=== PATIENT | male | born 1945 | race Caucasian/White ===

== ENCOUNTER → 2016-05-08 | Outpatient (CLI) | payer OTHER ==
[2016-05-08 09:37] LABS: MEAN CORPUSCULAR HEMOGLOBIN 29.3 pg (27.0-33.0); MEAN CORPUSCULAR HGB CONC 33.8 g/dl (32.0-36.5); MEAN CORPUSCULAR VOLUME 86.5 fl (80.0-96.0); RED CELL DISTRIBUTION WIDTH 13.2 % (11.5-14.5); WHITE BLOOD COUNT 7.4 K/mm3 (4.0-10.0)
[2016-05-08 10:18] LABS: ALBUMIN 3.8 GM/DL (3.2-5.2); ALBUMIN/GLOBULIN RATIO 1.09 (1.00-1.93); ALKALINE PHOSPHATASE 87 U/L (45-117); ALT/SGPT 31 U/L (12-78); ANION GAP 9 MEQ/L (8-16); AST/SGOT 34 U/L (15-37); BILIRUBIN,TOTAL 0.6 MG/DL (0.2-1.0); BLOOD UREA NITROGEN 20 MG/DL (7-18); CALCIUM LEVEL 8.8 MG/DL (8.8-10.2); CARBON DIOXIDE LEVEL 30 MEQ/L (21-32); CHLORIDE LEVEL 103 MEQ/L (98-107); CHOLESTEROL LEVEL 144 MG/DL (<200); CREATININE FOR GFR 1.18 MG/DL (0.70-1.30); GLOMERULAR FILTRATION RATE > 60.0 (>42); GLUCOSE, FASTING 99 MG/DL (83-110); POTASSIUM SERUM 4.4 MEQ/L (3.5-5.1); SODIUM LEVEL 142 MEQ/L (136-145); TOTAL PROTEIN 7.3 GM/DL (6.4-8.2); TRIGLYCERIDES LEVEL 84 MG/DL (<150)
== END ==
LOC: M LAB 08:33
PROVIDERS: ATTEND Nurse Practitioner Family
DX: I10 Essential (primary) hypertension (principal); E78.00 Pure hypercholesterolemia, unspecified

== ENCOUNTER → 2016-05-08 | Outpatient (CLI) | payer OTHER ==
--- NOTE | 2016-05-08 15:10 | REP ---
Chest two views HISTORY: COPD Comparison: 12/07/2014 The lungs are clear. The heart is normal in size. The pulmonary vasculature is normal in appearance. The bony structure is intact. IMPRESSION: No acute disease. Signed by Wilbert Reeder MD 05/08/2016 10:14 A
== END ==
LOC: M RAD 08:27
PROVIDERS: ATTEND Internal Medicine
DX: J44.9 Chronic obstructive pulmonary disease, unspecified (principal); I10 Essential (primary) hypertension; E78.00 Pure hypercholesterolemia, unspecified

== ENCOUNTER → 2016-06-08 | Outpatient (CLI) | payer OTHER ==
--- NOTE | 2016-06-08 09:40 | REP ---
Clinical: COPD. Comparison: None. Findings: The bilateral lung young are relatively well aerated, symmetric, and without acute pulmonary parenchymal nodule or mass lesion and no significant evidence for COPD or bronchiectasis. Small area of fibroatelectatic change at the right base may represent acute and/or chronic findings. No further consolidation, effusion, or pneumothorax. No significant adenopathy. Mediastinum demonstrates atherosclerotic changes to the thoracic aorta without cardiomegaly or pericardial effusion. Moderate to large hiatal hernia noted at the gastroesophageal junction. Surrounding musculoskeletal structures demonstrate age-related changes. Impression: 1. No evidence for COPD or significant pleuroparenchymal disease and no evidence for mediastinal adenopathy 2. Small focus of acute / chronic fibroatelectatic change at the right base is nonspecific. 3. Moderate hiatal hernia. Signed by Nabil Gaming MD 06/08/2016 09:31 A
== END ==
LOC: M RAD 09:08
PROVIDERS: ATTEND Internal Medicine Pulmonary Disease
DX: J44.9 Chronic obstructive pulmonary disease, unspecified (principal)

== ENCOUNTER → 2016-09-18 | Outpatient (CLI) | payer OTHER ==
[2016-09-18 09:51] LABS: ALBUMIN 3.6 GM/DL (3.2-5.2); ALBUMIN/GLOBULIN RATIO 1.03 (1.00-1.93); ALKALINE PHOSPHATASE 80 U/L (45-117); ALT/SGPT 28 U/L (12-78); ANION GAP 6 MEQ/L (8-16); AST/SGOT 35 U/L (15-37); BILIRUBIN,TOTAL 0.7 MG/DL (0.2-1.0); BLOOD UREA NITROGEN 16 MG/DL (7-18); CALCIUM LEVEL 8.5 MG/DL (8.8-10.2); CARBON DIOXIDE LEVEL 29 MEQ/L (21-32); CHLORIDE LEVEL 105 MEQ/L (98-107); CHOLESTEROL LEVEL 143 MG/DL (<200); CREATININE FOR GFR 1.16 MG/DL (0.70-1.30); GLOMERULAR FILTRATION RATE > 60.0 (>42); GLUCOSE, FASTING 102 MG/DL (83-110); POTASSIUM SERUM 4.3 MEQ/L (3.5-5.1); SODIUM LEVEL 140 MEQ/L (136-145); TOTAL PROTEIN 7.1 GM/DL (6.4-8.2); TRIGLYCERIDES LEVEL 109 MG/DL (<150)
[2016-09-18 10:03] LABS: MEAN CORPUSCULAR HEMOGLOBIN 29.8 pg (27.0-33.0); MEAN CORPUSCULAR VOLUME 87.6 fl (80.0-96.0); RED CELL DISTRIBUTION WIDTH 13.6 % (11.5-14.5); WHITE BLOOD COUNT 7.4 K/mm3 (4.0-10.0)
== END ==
LOC: M LAB 08:13
PROVIDERS: ATTEND Nurse Practitioner Family
DX: E78.5 Hyperlipidemia, unspecified (principal); I10 Essential (primary) hypertension

== ENCOUNTER → 2017-04-06 | Outpatient (CLI) | payer OTHER ==
[2017-04-07 08:07] LABS: HERPES ZOSTER, VARICELLA IgG 1354 index (Immune >165)
== END ==
LOC: M LAB 06:49
DX: Z78.9 Other specified health status (principal)
CPT/HCPCS: 86787

== ENCOUNTER → 2017-08-05 | Outpatient (CLI) | payer OTHER ==
[2017-08-05 08:35] LABS: BASO % 0.3 % (0.0-1.0); EOS # 0.6 10^3/uL (0.0-0.50); EOS % 7.4 % (0.0-3.0); HEMATOCRIT 44.8 % (42.0-52.0); HEMOGLOBIN 15.3 g/dl (13.5-17.5); IMMATURE GRANULOCYTE % 0.4 % (0-3.0); LYMPH # 2.8 10^3/uL (1.5-4.5); LYMPH % 34.8 % (24.0-44.0); MEAN CORPUSCULAR HEMOGLOBIN 29.7 pg (27.0-33.0); MEAN CORPUSCULAR HGB CONC 34.2 g/dl (32.0-36.5); MONO # 0.6 10^3/uL (0.0-0.8); MONO % 7.7 % (0.0-5.0); NEUTROPHILS # 3.9 10^3/uL (1.8-7.7); NEUTROPHILS % 49.4 % (36.0-66.0); PLATELET COUNT, AUTOMATED 204 10^3/uL (150-450); RED BLOOD COUNT 5.15 10^6/uL (4.30-6.10); RED CELL DISTRIBUTION WIDTH 13.4 % (11.5-14.5)
[2017-08-05 08:59] LABS: ALBUMIN 3.7 GM/DL (3.2-5.2); ALBUMIN/GLOBULIN RATIO 1.03 (1.00-1.93); ALKALINE PHOSPHATASE 85 U/L (45-117); ALT/SGPT 30 U/L (12-78); ANION GAP 5 MEQ/L (8-16); AST/SGOT 33 U/L (7-37); BILIRUBIN,TOTAL 0.6 MG/DL (0.2-1.0); BLOOD UREA NITROGEN 17 MG/DL (7-18); CALCIUM LEVEL 8.5 MG/DL (8.8-10.2); CARBON DIOXIDE LEVEL 29 MEQ/L (21-32); CHLORIDE LEVEL 106 MEQ/L (98-107); CHOLESTEROL LEVEL 138 MG/DL (<200); CHOLESTEROL RISK RATIO 3.538 (<5); CREATININE FOR GFR 1.16 MG/DL (0.70-1.30); FREE T4 1.08 NG/DL (0.76-1.46); GLOMERULAR FILTRATION RATE > 60.0 (>42); GLUCOSE, FASTING 100 MG/DL (70-100); HDL CHOLESTEROL 39 MG/DL (>40); LDL CHOLESTEROL 75.4 MG/DL (<100); NON-HDL-C 99 MG/DL; POTASSIUM SERUM 4.5 MEQ/L (3.5-5.1); SODIUM LEVEL 140 MEQ/L (136-145); TOTAL PROTEIN 7.3 GM/DL (6.4-8.2); TRIGLYCERIDES LEVEL 118 MG/DL (<150)
[2017-08-05 09:21] LABS: TOTAL 25(OH) VITAMIN D 32.6 NG/ML (30.0-100.0)
[2017-08-05 10:28] LABS: ESTIMATED AVERAGE GLUCOSE 117 MG/DL (60-110); HEMOGLOBIN A1c 5.7 %
== END ==
LOC: M LAB 06:56
DX: E55.9 Vitamin D deficiency, unspecified (principal); E87.6 Hypokalemia; R60.9 Edema, unspecified; E78.00 Pure hypercholesterolemia, unspecified; Z79.899 Other long term (current) drug therapy
CPT/HCPCS: 84443

== ENCOUNTER → 2018-03-04 | Outpatient (CLI) | payer OTHER ==
[2018-03-04 08:02] LABS: BASO % 0.4 % (0.0-1.0); EOS # 0.5 10^3/uL (0.0-0.50); EOS % 6.5 % (0.0-3.0); HEMATOCRIT 45.6 % (42.0-52.0); HEMOGLOBIN 15.2 g/dl (13.5-17.5); LYMPH # 2.6 10^3/uL (1.5-4.5); LYMPH % 34.9 % (24.0-44.0); MEAN CORPUSCULAR HEMOGLOBIN 29.2 pg (27.0-33.0); MEAN CORPUSCULAR HGB CONC 33.3 g/dl (32.0-36.5); MEAN CORPUSCULAR VOLUME 87.7 fl (80.0-96.0); MONO # 0.6 10^3/uL (0.0-0.8); MONO % 8.3 % (0.0-5.0); NEUTROPHILS # 3.7 10^3/uL (1.8-7.7); NEUTROPHILS % 49.5 % (36.0-66.0); PLATELET COUNT, AUTOMATED 204 10^3/uL (150-450); WHITE BLOOD COUNT 7.4 10^3/uL (4.0-10.0)
[2018-03-04 08:27] LABS: ALBUMIN 3.6 GM/DL (3.2-5.2); ALT/SGPT 33 U/L (12-78); BILIRUBIN,TOTAL 0.4 MG/DL (0.2-1.0); BLOOD UREA NITROGEN 10 MG/DL (7-18); CALCIUM LEVEL 8.6 MG/DL (8.8-10.2); CARBON DIOXIDE LEVEL 30 MEQ/L (21-32); CHLORIDE LEVEL 104 MEQ/L (98-107); CHOLESTEROL LEVEL 147 MG/DL (<200); CHOLESTEROL RISK RATIO 3.769 (<5); FREE T4 1.14 NG/DL (0.76-1.46); GLOMERULAR FILTRATION RATE > 60.0 (>42); GLUCOSE, FASTING 105 MG/DL (70-100); HDL CHOLESTEROL 39 MG/DL (>40); LDL CHOLESTEROL 87 MG/DL (<100); NON-HDL-C 108 MG/DL; POTASSIUM SERUM 4.5 MEQ/L (3.5-5.1); SODIUM LEVEL 140 MEQ/L (136-145); TOTAL PROTEIN 7.1 GM/DL (6.4-8.2); TRIGLYCERIDES LEVEL 105 MG/DL (<150)
== END ==
LOC: M LAB 07:06
PROVIDERS: ATTEND Physician Assistant Medical
DX: I10 Essential (primary) hypertension (principal); R53.83 Other fatigue; E78.2 Mixed hyperlipidemia
CPT/HCPCS: 36415; 80053; 80061; 83036; 84439; 84443; 85025; G0103

== ENCOUNTER → 2020-10-11 | Outpatient (CLI) | payer MEDICARE ==
--- NOTE | 2020-10-12 19:31 | REPVR ---
PROCEDURE INFORMATION: Exam: MR Cervical Spine Without Contrast Exam date and time: 10/11/2020 3:22 PM Age: 75 years old Clinical indication: Neck pain; Additional info: Cervical disc degeneration TECHNIQUE: Imaging protocol: Multiplanar magnetic resonance images of the cervical spine without contrast. COMPARISON: CT Chest without contrast 06/08/2016 9:24 AM FINDINGS: Long segment prominent central abnormal T2/STIR hyperintense cord signal extending from C2 through C4. No definite cord expansion. No cord compression. Cervical vertebral body heights are intact. 0.3 cm degenerative anterior subluxation of C3 on C4. Straightening of the cervical lordosis. The dens is intact. No abnormal marrow signal. Visualized structures of the posterior fossa are unremarkable. Soft tissues are unremarkable. C2-C3: Facet hypertrophy and uncovertebral spurring cause severe left and mild right foraminal narrowing. No significant canal narrowing. C3-C4: Posterior disc protrusion and uncovertebral spurring cause moderate canal narrowing and severe bilateral foraminal narrowing. C4-C5: Combination of degenerative anterior subluxation, posterior disc protrusion, and uncovertebral spurring cause moderate canal narrowing with effacement of the anterior thecal sac. Severe bilateral foraminal narrowing. C5-C6: Central disc protrusion causes focal mild to moderate canal narrowing. Along with uncovertebral spurring there is moderate left and severe right foraminal narrowing. C6-C7: Left paracentral disc protrusion superimposed over broad-based disc bulge causes focal moderate canal narrowing due with indentation of the left anterior thecal sac. Uncovertebral spurring causes mild right and moderate left foraminal narrowing. C7-T1: No significant canal or foraminal narrowing. IMPRESSION: 1. Long segment prominent central abnormal T2/STIR hyperintense cord signal extending from C2 through C4, limited evaluation without use of postcontrast sequences. Differential includes but is not limited to transverse myelitis, cord edema, or underlying neoplastic process. Recommend neurosurgery consultation and further evaluation with postcontrast sequences. 2. Multilevel advanced spondylotic changes of the cervical spine, as detailed above. Electronically signed by: Forrest Ramos On 10/12/2020 19:30:46 PM
== END ==
LOC: M PLAIMG 14:38
PROVIDERS: ATTEND Orthopaedic Surgery
DX: M50.30 Other cervical disc degeneration, unspecified cervical region (principal)

== ENCOUNTER → 2021-06-12 | Outpatient (CLI) | payer MEDICARE ==
[2021-06-12 08:00] LABS: BASO % 0.4 % (0.0-1.0); EOS # 0.6 10^3/uL (0.0-0.5); EOS % 8.2 % (0.0-3.0); HEMOGLOBIN 15.9 g/dl (13.5-17.5); LYMPH # 2.2 10^3/uL (1.5-5.0); LYMPH % 32.7 % (24.0-44.0); MEAN CORPUSCULAR HEMOGLOBIN 29.7 pg (27.0-33.0); MEAN CORPUSCULAR HGB CONC 33.8 g/dl (32.0-36.5); MEAN CORPUSCULAR VOLUME 87.9 fl (80.0-96.0); MONO # 0.6 10^3/uL (0.0-0.8); MONO % 8.9 % (2.0-8.0); NEUTROPHILS # 3.4 10^3/uL (1.5-8.5); NEUTROPHILS % 49.5 % (36.0-66.0); PLATELET COUNT, AUTOMATED 161 10^3/uL (150-450); RED BLOOD COUNT 5.35 10^6/uL (4.30-6.10); WHITE BLOOD COUNT 6.9 10^3/uL (4.0-10.0)
[2021-06-12 08:11] LABS: INR 0.94
[2021-06-12 08:12] LABS: PARTIAL THROMBOPLASTIN TIME 30.4 SECONDS (25.9-37.0)
[2021-06-12 08:32] LABS: BLOOD UREA NITROGEN 19 MG/DL (7-18); CREATININE FOR GFR 1.19 MG/DL (0.70-1.30); GLOMERULAR FILTRATION RATE > 60.0 (>42)
== END ==
LOC: M LAB 07:19
PROVIDERS: ATTEND Orthopaedic Surgery
DX: M48.02 Spinal stenosis, cervical region (principal); M47.812 Spondylosis without myelopathy or radiculopathy, cervical region

== ENCOUNTER → 2021-06-16 | Outpatient (CLI) | payer MEDICARE | LOC: M LABSMTC 10:38 | PROVIDERS: ATTEND Orthopaedic Surgery | DX: Z01.812 Encounter for preprocedural laboratory examination (principal); Z20.822 Contact with and (suspected) exposure to COVID-19; M47.812 Spondylosis without myelopathy or radiculopathy, cervical region; M48.02 Spinal stenosis, cervical region ==

== ENCOUNTER → 2022-10-02 | Outpatient (REF) | payer MEDICARE ==
[2022-10-02 11:22] LABS: BLOOD UREA NITROGEN 12 MG/DL (9-23); CALCIUM LEVEL 8.4 MG/DL (8.3-10.6); CARBON DIOXIDE LEVEL 30 MMOL/L (20-31); CHLORIDE LEVEL 100 MMOL/L (98-107); CREATININE FOR GFR 0.97 MG/DL (0.70-1.30); GLOMERULAR FILTRATION RATE > 60.0 (>42); GLUCOSE, FASTING 104 MG/DL (74-106); POTASSIUM SERUM 3.3 MMOL/L (3.5-5.1); SODIUM LEVEL 138 MMOL/L (136-145)
== END ==
LOC: M LAB REF 10:27
PROVIDERS: ATTEND Internal Medicine Cardiovascular Disease
DX: E87.6 Hypokalemia (principal)

== ENCOUNTER 2023-02-03 12:10 | Emergency (ER) | payer MEDICARE ==
[~2023-02-03] VITALS: Ht 172.7 cm; Wt 101.0 kg
[2023-02-03] MEDS ORDERED: TAMS1CAP17 PO (12:32)
[2023-02-03] MEDS ORDERED: ELIQ2.5T PO (12:32)
[2023-02-03] MEDS ORDERED: BUME2TAB3 PO (12:32)
[2023-02-03] MEDS ORDERED: LEVA45AE PO (12:32)
[2023-02-03] MEDS ORDERED: METF500T13 PO (12:32)
[2023-02-03] MEDS ORDERED: BREO1INH3 PO (12:32)
[2023-02-03] MEDS ORDERED: DILT30TA PO (12:32)
[2023-02-03] MEDS ORDERED: ACETAMINOPHEN TAB 650MG DOSE (2X325MG) PO ONE (13:10)
[2023-02-03 13:26] LABS: BASO % 0.2 % (0.0-1.0); EOS % 0.2 % (0.0-3.0); HEMATOCRIT 41.3 % (42.0-52.0); HEMOGLOBIN 14.2 g/dl (13.5-17.5); LYMPH # 1.2 10^3/uL (1.5-5.0); LYMPH % 13.2 % (24.0-44.0); MEAN CORPUSCULAR HEMOGLOBIN 29.8 pg (27.0-33.0); MEAN CORPUSCULAR HGB CONC 34.4 g/dl (32.0-36.5); MEAN CORPUSCULAR VOLUME 86.6 fl (80.0-96.0); MONO # 0.9 10^3/uL (0.0-0.8); NEUTROPHILS # 6.8 10^3/uL (1.5-8.5); PLATELET COUNT, AUTOMATED 189 10^3/uL (150-450); RED BLOOD COUNT 4.77 10^6/uL (4.30-6.10)
[2023-02-03 13:48] LABS: CALCIUM LEVEL 9.1 MG/DL (8.3-10.6); CREATININE FOR GFR 1.37 MG/DL (0.70-1.30); GLOMERULAR FILTRATION RATE 53.4 (>42); POTASSIUM SERUM 3.6 MMOL/L (3.5-5.1)
[2023-02-03 14:09] LABS: RSV AMPLIFICATION NEGATIVE (NEGATIVE)
[2023-02-03] MEDS ORDERED: POTA-136 PO (14:59)
[2023-02-03] MEDS ORDERED: PANT40TA29 PO (14:59)
[2023-02-03] MEDS ORDERED: HOME MED LIST COMPLETE! XX SCH (15:05)
[2023-02-03 15:58] VITALS: BP_DIAS 69
[2023-02-03] MEDS ORDERED: NIRMATRELVIR/RITONAVIR (RENAL) CO-PACK (EUA) PO SCH ×2 (16:15→21:00)
[2023-02-03 16:50] VITALS: BP_SYST 113; TEMP 99.7; O2SAT 94
== END 2023-02-03 17:19 | disposition home or self-care (01) ==
LOC: M ED 12:10 → EDBD 12:10 → EDSEX 12:10 → M ED 17:19
DX: U07.1 COVID-19 (principal); I48.91 Unspecified atrial fibrillation; I44.4 Left anterior fascicular block; I42.2 Other hypertrophic cardiomyopathy; I10 Essential (primary) hypertension; J45.909 Unspecified asthma, uncomplicated; Z86.79 Personal history of other diseases of the circulatory system; Z79.01 Long term (current) use of anticoagulants; Z79.4 Long term (current) use of insulin; Z79.899 Other long term (current) drug therapy

== ENCOUNTER → 2024-01-03 | Outpatient (CLI) | payer MEDICARE ==
[~2024-01-03] MED LIST: BREO1INH3 PO; BUME2TAB3 PO; DILT30TA PO; ELIQ2.5T PO; LEVA45AE PO; METF500T13 PO; PANT40TA29 PO; POTA-136 PO; TAMS1CAP17 PO
== END ==
LOC: M SOG 07:50
PROVIDERS: ATTEND Physician Assistant
DX: M79.602 Pain in left arm (principal)

== ENCOUNTER 2024-06-02 08:09 | Day surgery (SDC) | payer MEDICARE ==
[~2024-06-02] VITALS: Ht 172.7 cm; Wt 98.1 kg
[~2024-06-02 08:09] MED LIST changes: +ACET1TAB55 PO
[2024-06-02] MEDS: SODIUM BICARBONATE 8.4% INJ 50MEQ 50ML VIAL XX ONE (09:45)
[2024-06-02] MEDS: LIDOCAINE W/EPINEPHRINE 1% 20ML VIAL XX ONE (09:45)
[2024-06-02] MEDS: TRANEXAMIC ACID 100 MG/ML 10ML VIAL As Ordered ONE (11:34)
[2024-06-02] MEDS: BACITRACIN OINTMENT 30GM TUBE As Ordered ONE (11:42)
[2024-06-02 11:50] VITALS: BP 124/56; TEMP 98; O2SAT 96
== END 2024-06-02 12:51 | disposition home or self-care (01) ==
LOC: M SDC 08:09
PROVIDERS: ATTEND Orthopaedic Surgery Hand Surgery
DX: G56.02 Carpal tunnel syndrome, left upper limb (principal); I48.91 Unspecified atrial fibrillation; I10 Essential (primary) hypertension; E78.00 Pure hypercholesterolemia, unspecified; J45.909 Unspecified asthma, uncomplicated; Z79.01 Long term (current) use of anticoagulants; Z79.899 Other long term (current) drug therapy; Z79.84 Long term (current) use of oral hypoglycemic drugs; Z87.891 Personal history of nicotine dependence
CPT/HCPCS: 64721; 88304; C1762

== ENCOUNTER → 2024-11-02 | Outpatient (CLI) | payer MEDICARE | LOC: M PLAIMG 10:40 | PROVIDERS: ATTEND Internal Medicine Pulmonary Disease | DX: R91.8 Other nonspecific abnormal finding of lung field (principal); J98.11 Atelectasis ==